=== PATIENT | female | born 1990 | race Caucasian/White ===

== ENCOUNTER 2021-03-22 08:43 | Observation (INO) ==
[2021-03-22] MEDS ORDERED: ONDANSETRON 4 MG/2 ML VIAL IV PRN ×3 (09:09→13:50)
--- NOTE | 2021-03-22 09:19 | Emergency Department Note ---
Abdominal Pain HPI General Chief Complaint: Flank Pain Stated Complaint: left flank pain Time Seen by Provider: 03/22/21 08:59 Source: patient, EMS, RN notes reviewed, old records reviewed and other (Patient sent from [facility] emergency department with 8 mm kidney stone and evaluation by urology emergency department at hospital.) Mode of arrival: EMS Limitations: no limitations History of Present Illness HPI Narrative: Narrative: 31-year-old female complaining of severe left flank pain starting day prior to arrival seen at [place] emergency department with 8 mm stone at the left UVJ. Was accepted in transfer to this emergency department Dr. Alves of urology. MD Complaint: abdominal pain and flank pain Onset (ago): day(s) (1) Consistency: constant Location: L flank Severity: severe Quality: cramping Radiation: LLQ Migration to: no migration Improves with: medication Worsens with: movement Context: history of similar episodes Associated symptoms: Reports nausea, vomiting, chills, dysuria and hematuria; Denies diarrhea, fever, constipation, hematemesis, hematochezia, melena, anorexia and syncope Treatments prior to arrival: prescription analgesics Related Data Home Medications Medication Instructions Recorded Confirmed cholecalciferol (vitamin D3) 25 mcg PO QDAY 03/22/21 03/22/21 cyanocobalamin (vitamin B-12) 500 mcg PO QDAY 03/22/21 03/22/21 cyproheptadine 4 mg PO Q8H 03/22/21 03/22/21 hydromorphone [Dilaudid] 8 mg PO Q4H PRN 03/22/21 03/22/21 isosorbide mononitrate 30 mg PO QDAY 03/22/21 03/22/21 ivabradine 7.5 mg PO BID 03/22/21 03/22/21 ondansetron HCl [Zofran] 8 mg PO Q8H 03/22/21 03/22/21 potassium chloride 20 meq PO BID 03/22/21 03/22/21 ranolazine 500 mg PO BID 03/22/21 03/22/21 tizanidine 8 mg PO Q8H 03/22/21 03/22/21 torsemide 20 mg PO Q48H 03/22/21 03/22/21 verapamil 80 mg PO TID 03/22/21 03/22/21 zolpidem [Ambien] 5 mg PO QHS PRN 03/22/21 03/22/21 Allergies Allergy/AdvReac Type Severity Reaction Status Date / Time latex Allergy Intermediate Rash Verified 03/22/21 08:50 levofloxacin [From Levaquin] Allergy Intermediate Joint Pain Verified 03/22/21 08:50 moxifloxacin [From Avelox] Allergy Intermediate Joint Pain Verified 03/22/21 08:50 promethazine [From Phenergan] Allergy Intermediate Seizure Verified 03/22/21 08:50 azithromycin Allergy Unknown Hives Verified 03/22/21 08:50 Sulfa (Sulfonamide Allergy Unknown Hives Verified 03/22/21 08:50 Antibiotics) naproxen AdvReac Intermediate Vomiting Verified 03/22/21 08:50 Review of Systems ROS ROS Narrative: Narrative: All systems ED: reviewed and negative except as stated. PFSH Narrative Patient History Narrative: Narrative: Medical/Surgical/Family History All Active Problems (Updated 03/22/21 @ 11:46 by Chet Alves MD) Kidney stone on left side (Acute) Congestive heart failure (CHF) (Acute) Social History Smoking Status: Never smoker Exam Narrative Narrative: Narrative: General Limitations: no limitations General appearance: Present alert, in distress and obese Head Head: Present atraumatic and normocephalic Eye Eye: Present normal appearance, PERRL and EOMI ENT ENT: Present normal exam and mucous membranes moist Neck Neck: Present normal inspection and full ROM Chest Chest: Present normal inspection; Absent tenderness Respiratory Respiratory: Present rales/crackles; Absent respiratory distress Cardiovascular Cardiovascular: Present regular rate and normal rhythm; Absent systolic murmur Adbominal Abdominal: Present soft, tenderness (Left lower quadrant) and normal bowel sounds; Absent distention, guarding, rebound, trauma, Mark's sign, tenderness at McBurney's Point, ascites, mass, bruit, pulsatile mass and hernia Extremities Extremities: Present normal inspection, full ROM and normal capillary refill; Absent tenderness, pedal edema and pretibial edema Back Back: Present normal inspection and CVA tenderness (L); Absent CVA tenderness (R) Neurological Neurological: Present alert and oriented X3 Psychiatric Psychiatric: Present normal affect and normal mood Skin Skin: Present warm (WNL); Absent rash Course Vital Signs Vital signs: Vital Signs Temperature 98.0 F 03/22/21 08:44 Pulse Rate 83 09/13/21 08:44 Respiratory Rate 20 03/22/21 08:44 Blood Pressure 124/80 03/22/21 08:44 Pulse Oximetry (%) 100 03/22/21 08:44 Temperature 98.0 F 03/22/21 08:44 Pulse Rate 77 03/22/21 12:01 Respiratory Rate 20 03/22/21 08:44 Blood Pressure 110/79 03/22/21 12:01 Pulse Oximetry (%) 100 03/22/21 12:01 MDM MDM Narrative Medical decision making narrative: Narrative: 31-year-old female with known 8 mm kidney J transferred to this emergency department for evaluation by . Dr. Alves requests patient be admitted to hospitalist. Differential Diagnosis Differential Diagnosis: Kidney stone pyelonephritis Medical Records Medical records reviewed: Yes I reviewed the patient's medical records. EKG Data EKG #1: EKG attestation: Yes I reviewed and interpreted this EKG. and Yes There are no EKG findings of acute coronary syndrome EKG shows normal: sinus rhythm Rate: normal (72) Rhythm: NSR [place]/QRS: normal Heart block present: None ST segment elevation in: None ST segment depression in: None Q waves: None T wave inversions noted in: None Hyperacute T waves: None QTc: normal QRS morphology: Present normal Interpretation: normal EKG Pulse Oximetry Data Pulse Ox %: 100 Interpretation: 100% on 3 L nasal cannula. Discharge Plan Patient/Caregiver Discharge Instructions Pt seen by LICENSED APPRAISER/PA only: No Clinical Impression: Kidney stone on left side Congestive heart failure (CHF) Qualifiers: Heart failure type: unspecified Heart failure chronicity: chronic Qualified Code(s): I50.9 - Heart failure, unspecified Patient Disposition: Xfer As Outpt/Obs ([facility]) Condition: Fair Follow up with: Not On Staff,Physician [Referring] - Prescriptions: No Action torsemide 20 mg Tablet 20 mg PO Q48H RF: 0 tizanidine 4 mg Tablet 8 mg PO Q8H RF: 0 ondansetron HCl [Zofran] 8 mg Tablet 8 mg PO Q8H RF: 0 hydromorphone [Dilaudid] 8 mg Tablet 8 mg PO Q4H PRN (Reason: Pain) RF: 0 isosorbide mononitrate 30 mg Tablet Extended Release 24 Hr 30 mg PO QDAY RF: 0 cyproheptadine 4 mg Tablet 4 mg PO Q8H RF: 0 potassium chloride 20 mEq Packet 20 meq PO BID RF: 0 cyanocobalamin (vitamin B-12) 500 mcg Tablet 500 mcg PO QDAY RF: 0 zolpidem [Ambien] 5 mg Tablet 5 mg PO QHS PRN (Reason: Insomnia) RF: 0 verapamil 80 mg Tablet 80 mg PO TID RF: 0 ranolazine 500 mg Tablet Extended Release 12 Hr 500 mg PO BID RF: 0 cholecalciferol (vitamin D3) 25 mcg (1,000 unit) Tablet 25 mcg PO QDAY RF: 0 ivabradine 7.5 mg Tablet 7.5 mg PO BID RF: 0
[2021-03-22] MEDS: HYDROmorphone 1 MG/ML SYRINGE IV PRN ×5 (11:24→22:04)
--- NOTE | 2021-03-22 13:23 | Internal Med History&Physical ---
HPI History of Present Illness Patient information: Note initiated : 03/22/21 at 1:13 pm Service Date, if different from initiated Date: [] Patient: Mary Lobato 31 y/o F admitted on for Lt flank pain. Chief Complaint: [] History of present illness: Ms. Lobato is a 31 year old female with a complex medical history that includes a history of coronary vasospasm, congenital heart disease of uncertain type complicated by congestive heart failure and pulmonary hypertension, asthma, chronic hypoxia with about 2 L/min baseline requirement, renal stones renal cysts, possible ankylosing spondylitis, obesity s/p gastric sleeve in 2019. The patient was transferred to the [facility] ED for further management of a left UVJ ureteral stone. The patient developed left flank pain on 03/18/2021 that progressed to let groin pain and gross hematuria on 03/19. This was associated with nausea, vomiting, chills, sweats and chest pain similar to the patient's prior episodes of coronary vasospasms. The patient was not able to keep food or medications down. She sought medical care at an outside facility where a CT chest/abdomen/pelvis revealed a 8 mm ureteral stone in the left ureter. Urology was not available at the outside facility at that time so the patient was transferred to [facility]. Dr. Alves requested hospital medicine admit the patient. The patient arrived to [facility] in stable condition and feels that she is at her cardiopulmonary baseline. Her pain was modestly controlled with Dilaudid IV in the ED. Review of Systems Constitutional: positive for chills, no fevers Eyes: no vision changes or pain Cardiovascular: positive for chest pain, no palpitations Respiratory: no cough or dyspnea Gastrointestinal: positive for nausea and vomiting, or diarrhea Genitourinary: positive for hematuria Musculoskeletal: no arthralgia or myalgia Integumentary: no skin lesion or wound Neurological: no focal weakness or numbness Psychiatric: no anxiety or depression Physical Exam Head: Atraumatic, normal inspection. Eyes: normal appearance, no scleral icterus. Neck: full ROM Respiratory: 2 L/min nasal canula, no respiratory distress. Cardiovascular: normal rate and rhythm, S1, S2. GI/Abdominal: soft, nontender, no guarding. Extremities: full range of motion, nontender. Neurological: CN II-XII intact, intact motor, intact sensation. Psychiatric: normal mood. Skin: warm, normal color PFSH PFSH All Active Problems (Updated 03/22/21 @ 13:35 by Zuhair Carrera MD) Obesity (Acute) Hypoxia (Acute) Kidney stone on left side (Acute) Congestive heart failure (CHF) (Acute) Medical History (Updated 03/22/21 @ 13:35 by Zuhair Carrera MD) Asthma Congenital heart disease Coronary artery vasospasm Hypoxia Obesity Pulmonary hypertension Surgical History (Updated 03/22/21 @ 13:36 by Zuhair Carrera MD) H/O esophagogastroduodenoscopy History of ERCP History of repair of hiatal hernia Hx of appendectomy Hx of cardiac cath Family History (Updated 03/22/21 @ 13:39 by Zuhair Carrera MD) Father Diabetes mellitus Grandfather Coronary artery disease Renal stones Grandmother Breast cancer Renal stones Congestive heart failure COPD (chronic obstructive pulmonary disease) Social History (Updated 03/22/21 @ 13:40 by Zuhair Carrera MD) marital status: single occupational status: disabled smoking status: Never smoker alcohol intake frequency: does not drink substance use type: does not use MEDS/ALLERGIES Home Medications and Allergies Home Medications Medication Instructions Recorded Confirmed Type cholecalciferol (vitamin D3) 25 mcg PO QDAY 03/22/21 03/22/21 History cyanocobalamin (vitamin B-12) 500 mcg PO QDAY 03/22/21 03/22/21 History cyproheptadine 4 mg PO Q8H 03/22/21 03/22/21 History hydromorphone [Dilaudid] 8 mg PO Q4H PRN 03/22/21 03/22/21 History isosorbide mononitrate 30 mg PO QDAY 03/22/21 03/22/21 History ivabradine 7.5 mg PO BID 03/22/21 03/22/21 History ondansetron HCl [Zofran] 8 mg PO Q8H 03/22/21 03/22/21 History potassium chloride 20 meq PO BID 03/22/21 03/22/21 History ranolazine 500 mg PO BID 03/22/21 03/22/21 History tizanidine 8 mg PO Q8H 03/22/21 03/22/21 History torsemide 20 mg PO Q48H 03/22/21 03/22/21 History verapamil 80 mg PO TID 03/22/21 03/22/21 History zolpidem [Ambien] 5 mg PO QHS PRN 03/22/21 03/22/21 History Allergies Allergy/AdvReac Type Severity Reaction Status Date / Time latex Allergy Intermediate Rash Verified 03/22/21 08:50 levofloxacin [From Levaquin] Allergy Intermediate Joint Pain Verified 03/22/21 08:50 moxifloxacin [From Avelox] Allergy Intermediate Joint Pain Verified 03/22/21 08:50 promethazine [From Phenergan] Allergy Intermediate Seizure Verified 03/22/21 08:50 azithromycin Allergy Unknown Hives Verified 03/22/21 08:50 Sulfa (Sulfonamide Allergy Unknown Hives Verified 03/22/21 08:50 Antibiotics) naproxen AdvReac Intermediate Vomiting Verified 03/22/21 08:50 EXAM Constitutional Vitals: Temp Pulse Resp BP Pulse Ox 98.0 F 83 20 117/82 100 03/22/21 08:44 03/22/21 12:44 03/22/21 08:44 03/22/21 12:44 03/22/21 12:44 A/P Narrative A/P Narrative: Assessment: 31 year old female with a complex medical history that includes a history of coronary vasospasm, congenital heart disease of uncertain type complicated by congestive heart failure and pulmonary hypertension, asthma, chronic hypoxia with about 2 L/min baseline requirement, renal stones renal cysts, possible ankylosing spondylitis, chronic pain on opioids (oral dilaudid and fentanyl patch), obesity s/p gastric sleeve in 2019. The patient has had multiple surgeries and procedures in her life-time including multiple cardiac catheterizations, an ERCP, appendectomy, gastric sleeve and hiatal hernia repair, and a recent EGD earlier this year. She denies prior complications from anesthesia. The patient was at her baseline in the ED, denies chest pain. EKG did not show any acute ischemic changes. Troponin and BNP from the OSH were normal. #Left 8 mm ureteral stone #Chronic hypoxia of 2 L/min #Pulmonary hypertension #Hx of coronary vasospasms (stable) #Hx of congestive heart failure (stable) #Hx of asthma (stable) #Chronic pain on opioids #Congenital heart disease #Obesity s/p gastric sleeve 2019 #Hx of NSAID induced acute kidney injury Plan -Ok to proceed with urologic procedure from an internal medicine perspective. -Admit to med/surg observation -Urology consulted for ureteral procedure -Ceftriaxone IV for urologic procedure -Consider Flomax for ureteral stone-per urology -Continue essential home medications starting today. -media monitor -NPO except meds -Code status: Full -Disposition: home if stable after the procedure Time Spent With Patient Time: Total time spent is greater than 50% in coordination of care (as docume nted) at patient's floor/unit and/or counseling patient:
[2021-03-22] MEDS ORDERED: NALOXONE HCL 0.4 MG/ML VIAL IV PRN ×2 (13:50→16:34)
[2021-03-22] MEDS ORDERED: ONDANSETRON 4 MG ODT TABLET PO PRN (14:04)
--- NOTE | 2021-03-22 14:43 | EKG ---
[facility] Test Date: 2021-03-22 Pat Name: Mary Lobato Department: ED Room: Gender: Female Telephoner: cyril : 1990 Requested By: Ion Linares Order Number: [id number] Reading MD: Fortino Hutchison Measurements Intervals [place] Rate: 72 P: 56 OR: 152 QRS: 52 QRSD: 101 T: 47 QT: 414 QTc: 454 Interpretive Statements Sinus rhythm Electronically Signed On 03-22-2021 14:43:28 PDT by Fortino Hutchison /store/M0/[id number]
[2021-03-22 14:49] LABS: Basophils # (Auto) 0.04 K/mcL (0.00-0.30); Basophils % (Auto) 0.7 % (0.0-2.0); Eosinophils # (Auto) 0.17 K/mcL (0.00-0.70); Eosinophils % (Auto) 3.1 % (0.0-7.0); Hematocrit 30.3 % (34.1-44.9); Hemoglobin 9.9 g/dL (11.2-15.7); Lymphocytes # (Auto) 1.71 K/mcL (1.50-4.80); Lymphocytes % (Auto) 30.7 % (15.5-49.0); Mean Cell Volume 86.8 fL (80.0-100.0); Mean Corpuscular HGB Conc 32.7 g/dL (31.0-36.0); Mean Platelet Volume 9.9 fL (7.4-10.4); Monocytes # (Auto) 0.38 K/mcL (0.10-0.90); Monocytes % (Auto) 6.8 % (1.0-12.0); Neutrophils % (Auto) 58.7 % (38.0-78.0); Platelet Count 271 K/mcL (140-440); RBC 3.49 M/mcL (3.59-5.38); Red Cell Distribution Width 13.5 % (11.5-14.5); WBC 5.6 K/mcL (4.5-11.0)
[2021-03-22 15:12] LABS: ALT/SGPT 6 U/L (<40); AST/SGOT 13 U/L (<32); Albumin 3.7 gm/dL (3.2-5.2); Albumin/Globulin Ratio 1.4 (1.0-2.3); Alkaline Phosphatase 76 U/L (39-117); Bilirubin,Total 0.3 mg/dL (0.1-1.0); Blood Urea Nitrogen 10 mg/dL (6-20); Calcium 8.5 mg/dL (8.6-10.4); Carbon Dioxide 24 mmol/L (22-30); Chloride 101 mmol/L (96-108); Globulin 2.6 gm/dL (2.2-3.7); Glomerular Filtration Rate 115; Glucose 81 mg/dL (70-105)
[2021-03-22] MEDS ORDERED: IPRATROPIUM/ALBUTEROL 3 ML AMPUL.NEB NEB PRN ×2 (15:29→16:34)
--- NOTE | 2021-03-22 15:47 | General Surgery Consult Note ---
HPI Data of Consult Consult date: 03/22/21 Primary Care Provider: Mary Owusu MD Consult Narrative Chief complaint: Left flank and lower quadrant pain Reason for consult: Need for surgical intervention History of present illness: This 31-year-old female has a history of stones. She developed severe left flank pain of fairly rapid onset on March 18. On March 19 the pain began to radiate down into the left groin also and was associated with gross hematuria and nausea and vomiting. On March 21 she went to the emergency room in [place]. A CT showed an 8 mm left ureterovesical junction stone with obstruction. That coupled with her history of congenital congestive heart failure prompted a transfer to this hospital. She has been seen by medicine who felt that she is at her normal baseline at this point and was cleared for surgery and anesthesia. We will proceed with a left ureteroscopic laser lithotripsy. cc:: CC: Zuhair Carrera MD PFSH PFSH All Active Problems (Updated 03/22/21 @ 13:35 by Zuhair Carrera MD) Obesity (Acute) Hypoxia (Acute) Kidney stone on left side (Acute) Congestive heart failure (CHF) (Acute) Medical History (Updated 03/22/21 @ 13:35 by Zuhair Carrera MD) Asthma Congenital heart disease Coronary artery vasospasm Hypoxia Obesity Pulmonary hypertension Surgical History (Updated 03/22/21 @ 13:36 by Zuhair Carrera MD) H/O esophagogastroduodenoscopy History of ERCP History of repair of hiatal hernia Hx of appendectomy Hx of cardiac cath Family History (Updated 03/22/21 @ 13:39 by Zuhair Carrera MD) Father Diabetes mellitus Grandfather Coronary artery disease Renal stones Grandmother Breast cancer Renal stones Congestive heart failure COPD (chronic obstructive pulmonary disease) Social History (Updated 03/22/21 @ 13:40 by Zuhair Carrera MD) marital status: single occupational status: disabled smoking status: Never smoker alcohol intake frequency: does not drink substance use type: does not use MEDS/ALLERGIES Home Medications and Allergies Home Medications Medication Instructions Recorded Confirmed Type Xanax 0.5 mg PO TID 03/22/21 03/22/21 History cholecalciferol (vitamin D3) 25 mcg PO QDAY 03/22/21 03/22/21 History cyanocobalamin (vitamin B-12) 500 mcg PO QDAY 03/22/21 03/22/21 History cyproheptadine 4 mg PO Q8H 03/22/21 03/22/21 History fentanyl 50 mcg TRANSDERMAL Q3D 03/22/21 03/22/21 History gabapentin 50 mg PO TID 03/22/21 03/22/21 History hydromorphone [Dilaudid] 8 mg PO Q4H PRN 03/22/21 03/22/21 History isosorbide mononitrate 30 mg PO QDAY 03/22/21 03/22/21 History ivabradine 7.5 mg PO BID 03/22/21 03/22/21 History ondansetron HCl [Zofran] 8 mg PO Q8H 03/22/21 03/22/21 History potassium chloride 20 meq PO BID 03/22/21 03/22/21 History ranolazine 500 mg PO BID 03/22/21 03/22/21 History tizanidine 8 mg PO Q8H 03/22/21 03/22/21 History torsemide 20 mg PO Q48H 03/22/21 03/22/21 History verapamil 80 mg PO TID 03/22/21 03/22/21 History zolpidem [Ambien] 5 mg PO QHS PRN 03/22/21 03/22/21 History Allergies Allergy/AdvReac Type Severity Reaction Status Date / Time azithromycin Allergy Mild Hives Verified 03/22/21 14:00 latex Allergy Mild Rash Verified 03/22/21 14:00 Sulfa (Sulfonamide Allergy Mild Hives Verified 03/22/21 14:00 Antibiotics) levofloxacin [From Levaquin] AdvReac Intermediate Joint Pain Verified 03/22/21 14:00 moxifloxacin [From Avelox] AdvReac Intermediate Joint Pain Verified 03/22/21 14:00 promethazine [From Phenergan] AdvReac Intermediate Seizure Verified 03/22/21 14:00 naproxen AdvReac Mild Vomiting Verified 03/22/21 14:00 Physical Examination Vital Signs Vital signs: Temp Pulse Resp BP Pulse Ox 98.0 F 76 20 116/75 100 03/22/21 13:52 03/22/21 13:52 03/22/21 13:52 03/22/21 13:52 03/22/21 13:52 General physical appearance General physical exam: moderate distress ENT ENT exam: normal pinna and normal nares Head Head exam IM: Present normal inspection Cardiovascular Cardiovascular exam IM: Present normal rate and rhythm Respiratory Respiratory exam: normal respiratory effort Abdomen Abdomen: Present soft Integumentary Integumentary: Present no rash Results Labs Result diagrams: 03/22/21 14:20 03/22/21 14:20 Labs: Abnormal lab results 03/22/21 03/22/21 Range/Units 14:20 14:20 RBC 3.49 L (3.59-5.38) M/mcL Hgb 9.9 L (11.2-15.7) g/dL Hct 30.3 L (34.1-44.9) % Calcium 8.5 L (8.6-10.4) mg/dL Diabetes panel 03/22/21 Range/Units 14:20 Sodium 135 (133-145) mmol/L Potassium 4.1 (3.3-5.1) mmol/L Chloride 101 (96-108) mmol/L Carbon Dioxide 24 (22-30) mmol/L BUN 10 (6-20) mg/dL Creatinine 0.7 (0.6-1.1) mg/dL Glucose 81 (70-105) mg/dL Calcium 8.5 L (8.6-10.4) mg/dL AST 13 (<32) U/L ALT 6 (<40) U/L Alkaline Phosphatase 76 (39-117) U/L Total Protein 6.3 (5.9-8.4) gm/dL Albumin 3.7 (3.2-5.2) gm/dL Calcium panel 03/22/21 Range/Units 14:20 Calcium 8.5 L (8.6-10.4) mg/dL Albumin 3.7 (3.2-5.2) gm/dL Pituitary panel 03/22/21 Range/Units 14:20 Sodium 135 (133-145) mmol/L Potassium 4.1 (3.3-5.1) mmol/L Chloride 101 (96-108) mmol/L Carbon Dioxide 24 (22-30) mmol/L BUN 10 (6-20) mg/dL Creatinine 0.7 (0.6-1.1) mg/dL Glucose 81 (70-105) mg/dL Calcium 8.5 L (8.6-10.4) mg/dL Adrenal panel 03/22/21 Range/Units 14:20 Sodium 135 (133-145) mmol/L Potassium 4.1 (3.3-5.1) mmol/L Chloride 101 (96-108) mmol/L Carbon Dioxide 24 (22-30) mmol/L BUN 10 (6-20) mg/dL Creatinine 0.7 (0.6-1.1) mg/dL Glucose 81 (70-105) mg/dL Calcium 8.5 L (8.6-10.4) mg/dL Total Bilirubin 0.3 (0.1-1.0) mg/dL AST 13 (<32) U/L ALT 6 (<40) U/L Alkaline Phosphatase 76 (39-117) U/L Total Protein 6.3 (5.9-8.4) gm/dL Albumin 3.7 (3.2-5.2) gm/dL All other labs normal. A/P Assessment and plan (1) Kidney stone on left side: Status: Acute Comment: Left flank pain with large distal ureteral stone Narrative A/P Narrative: Assessment--left ureterovesical junction stone Plan--proceed with left ureteroscopic laser lithotripsy under anesthesia in the operating room Time Spent With Patient Time: Total time spent is greater than 50% in coordination of care (as documented) at patient's floor/unit and/or counseling patient: Total time spent with greater than 50% in coordination of care (as documented) at patient's floor/unit and/or counseling patient:: 15 - 24 minutes
[2021-03-22] MEDS ORDERED: LIDOCAINE HCL/PF 100 MG/5 ML SYRINGE IV ONE (16:15)
[2021-03-22] MEDS ORDERED: MAGNESIUM SULFATE 2 GM/50 ML BAG IV ONE (16:15)
[2021-03-22] MEDS ORDERED: GLYCOPYRROLATE 0.2 MG/ML VIAL IV ONE (16:15)
[2021-03-22] MEDS ORDERED: KETAMINE 50 MG/ML Syringe (ANEST) IV ONE (16:15)
[2021-03-22] MEDS ORDERED: ONDANSETRON 4 MG/2 ML VIAL ONE (16:15)
[2021-03-22] MEDS ORDERED: HYDROmorphone 1 MG/ML SYRINGE ONE (16:15)
[2021-03-22] MEDS ORDERED: fentaNYL 100 MCG/2 ML VIAL IV ONE (16:15)
[2021-03-22] MEDS ORDERED: DEXAMETHASONE 10 MG/ML VIAL ONE (16:15)
[2021-03-22] MEDS ORDERED: PROPOFOL 200 MG/20 ML VIAL IV ONE (16:15)
[2021-03-22] MEDS ORDERED: MIDAZOLAM 5 MG/5 ML VIAL ONE (16:15)
[2021-03-22] MEDS: cefTRIAXone 1 GM VIAL IV SCH (16:15)
[2021-03-22] MEDS ORDERED: fentaNYL 100 MCG/2 ML VIAL IV PRN (16:34)
[2021-03-22] MEDS ORDERED: ACETAMINOPHEN 1,000 MG/100 ML BAG IV ONE (16:34)
[2021-03-22] MEDS ORDERED: METHOCARBAMOL 1,000 MG/10 ML VIAL IV PRN (16:34)
[2021-03-22] MEDS ORDERED: METOPROLOL TARTRATE 5 MG/5 ML VIAL IV PRN (16:34)
[2021-03-22] MEDS ORDERED: LACTATED RINGERS 250 ML IV PRN (16:34)
[2021-03-22] MEDS ORDERED: HYDROmorphone 0.5 MG/0.5 ML SYRINGE IV PRN (16:34)
[2021-03-22] MEDS ORDERED: FLUMAZENIL 0.1 MG/ML ML IV PRN (16:34)
[2021-03-22] MEDS ORDERED: LABETALOL 5 MG/ML ML IV PRN (16:34)
[2021-03-22] MEDS ORDERED: MEPERIDINE 25 MG/ML VIAL IV PRN (16:34)
[2021-03-22] MEDS ORDERED: BENZOCAINE/MENTHOL 1 LOZENGE PO PRN (16:34)
[2021-03-22] MEDS ORDERED: IOVERSOL 20 ML VIAL IV ONE (16:41)
[2021-03-22] MEDS ORDERED: LACTATED RINGERS 1,000 ML IV SCH (16:45)
--- NOTE | 2021-03-22 17:11 | Brief Operative Note ---
Brief Operative Note Date of procedure: 03/22/21 Pre-op diagnosis: Left UVJ stone Post-op diagnosis: same Procedure: Left ureteroscopic laser lithotripsy with stent placement Grafts/Implants: Yes (6 Bangladeshi by 26 cm stent) Anesthesia: GETA Findings: Same Complications: none Surgeon: Chet Alves Estimated blood loss (cc): 0 Tourniquet Time (Minutes): 0 Specimens Removed/Pathology: other (Stone fragments from left ureter) Condition: stable Disposition: PACU
--- NOTE | 2021-03-22 17:17 | Operative Note ---
Operative Note Operative Note: Preop diagnosis--left UVJ stone Surgeon--Chet Alves Operation performed--left ureteroscopic laser lithotripsy with stent placement Postop diagnosis--same Anesthesia--General with LMA Complications--none Specimen--stone fragments Blood loss--none Drain--6 Albanian by 26 cm double-J stent with string Indication this patient has a history of kidney stones and developed sudden onset of left flank pain and left lower quadrant pain 4 days ago. It got progressively worse associated with nausea and vomiting and came to the emergency room in [place]. There she was found to have an 8 mm distal stone with obstruction and was transferred here for definitive treatment. Description--following satisfactory placement on the operating table in a supine position, a timeout was called at which time we confirmed the patient, procedure, position and presence of antibiotic. Following satisfactory induction of general anesthesia patient was prepped and draped in a lithotomy position. A 21 Albanian cystoscope was advanced into the bladder under direct vision. The urethra was normal. Bladder neck was normal. Trigone and orifice ease were normal. And a 5 Albanian open tip ureteral catheter was inserted into the left ureteral orifice and a retrograde study was seen showing a stone approximately 1 cm from the orifice. A safety tip guidewire was passed through the open tip catheter past the stone and coiled in the kidney. The open tip catheter was removed. Following that the cystoscope was replaced with a short semirigid ureteroscope. It was advanced over a second wire into the left ureter. Up to and above the stone. Once that was done the second wire was removed leaving the initial [address] A 365 m laser fiber was used with the holmium laser set on 10 and 1. The laser was used to break the stone up into multiple smaller fragments. It was a very soft stone and broke up quite easily. The smaller pieces were flushed out. Larger stones were grasped using a stone basket and sent as specimen. The ureter at the end was stone free after several passes with the scope. At that point the ureteroscope and basket were replaced with the original cystoscope sheath. Once reassembled the 6 Albanian by 26 cm double-J stent with a knot in the string which was left in place was advanced over the guidewire. It was advanced up to the kidney and with slow withdrawal of the wire there was good coil in the kidney. The wire was completely removed and there was good coil in the bladder. The bladder was emptied and the scope removed. The suture on the stent was cut short but outside of the urethral meatus. At that point she was transferred to recovery room in satisfactory condition
[2021-03-22] MEDS: 0.9 % SODIUM CHLORIDE 10 ML SYRINGE IV SCH ×3 (18:36→22:05)
[2021-03-22] MEDS: VERAPAMIL HCL 80 MG TABLET PO SCH ×2 (18:36→21:47)
[2021-03-22] MEDS: ISOSORBIDE MONONITRATE 30 MG TAB.XL.24H PO SCH (18:36)
[2021-03-22] MEDS: tiZANidine 4 MG TABLET PO SCH ×2 (18:36→21:47)
[2021-03-22] MEDS: HYDROmorphone 2 MG TABLET PO PRN (19:36)
[2021-03-22] MEDS: DOCUSATE SODIUM 100 MG CAPSULE PO SCH (21:46)
[2021-03-22] MEDS: POTASSIUM CHLORIDE 20 MEQ PACKET PO SCH (21:46)
[2021-03-22] MEDS: ATORVASTATIN 40 MG TABLET PO SCH (21:46)
[2021-03-22] MEDS: SENNOSIDES 1 TABLET PO SCH (21:47)
[2021-03-22] MEDS: RANOLAZINE 500 MG PO SCH (21:49)
[2021-03-22] MEDS: ZOLPIDEM 5 MG TABLET PO PRN (22:04)
[2021-03-22] MEDS: ALPRAZolam 0.5 MG TABLET PO PRN (22:04)
[2021-03-23] MEDS: HYDROmorphone 2 MG TABLET PO PRN ×3 (03:38→22:04)
[2021-03-23] MEDS: 0.9 % SODIUM CHLORIDE 10 ML SYRINGE IV SCH ×3 (06:07→20:55)
[2021-03-23] MEDS: tiZANidine 4 MG TABLET PO SCH ×3 (06:07→20:53)
[2021-03-23] MEDS ORDERED: TORSEMIDE 10 MG TABLET PO SCH (09:00)
[2021-03-23] MEDS: ACETAMINOPHEN 325 MG TABLET PO PRN (09:28)
[2021-03-23] MEDS: cefTRIAXone 1 GM VIAL IV SCH (09:29)
[2021-03-23] MEDS: ISOSORBIDE MONONITRATE 30 MG TAB.XL.24H PO SCH (10:38)
[2021-03-23] MEDS: ALPRAZolam 0.5 MG TABLET PO PRN ×3 (10:38→22:04)
[2021-03-23] MEDS: DOCUSATE SODIUM 100 MG CAPSULE PO SCH ×2 (10:38→20:51)
[2021-03-23] MEDS: VERAPAMIL HCL 80 MG TABLET PO SCH ×3 (10:39→20:51)
[2021-03-23] MEDS: POTASSIUM CHLORIDE 20 MEQ PACKET PO SCH ×2 (10:39→20:51)
[2021-03-23] MEDS: RANOLAZINE 500 MG PO SCH ×2 (11:01→20:53)
--- NOTE | 2021-03-23 11:05 | General Surgery Progress Note ---
SUBJECTIVE Subjective Patient information: Note initiated : 03/23/21 at 11:02 am Service Date, if different from initiated Date: [] Patient: Mary Lobato 31 y/o F admitted on 03/22/21 for Lt flank pain. Chief Complaint: [] Left ureteral calculus This patient underwent left ureteroscopic laser lithotripsy yesterday with a stent left in place. She is bothered this morning by her chronic pain and inability to get what she considers her standard regimen of pain medicine. She has not yet started on regular diet but should be able to tolerate it without difficulty. At this point if clinically stable she could be discharged to maintain her own care which she has been doing in the past. Constitutional Vitals: Vital Signs Temp Pulse Resp BP Pulse Ox 98.4 F 63 20 96/57 99 03/23/21 07:41 03/23/21 07:41 03/23/21 07:41 03/23/21 07:41 03/23/21 07:41 Period Temp Pulse Resp BP Sys/Tariq Pulse Ox Last 24 Hr 96.8 F-98.4 F 58-99 03-31 90-176/55-104 92-100 Intake and Output 03/22/21 03/23/21 03/23/21 21:59 05:59 13:59 Intake Total 1100 600 Output Total 1410 700 Balance -310 -100 Weight 247 lb 9.6 oz Intake & Output: Intake & Output 03/22/21 03/23/21 03/23/21 21:59 05:59 13:59 Intake Total 1100 600 Output Total 1410 700 Balance -310 -100 Weight 247 lb 9.6 oz Intake: IV 100 Oral 600 IV - Manual Only 1000 Output: Void Amount 1400 700 Estimated Blood Loss 10 Other: Urine Appearance Clear Urine Color Susan Moore Red Brown Urine Odor Strong A/P Assessment and plan (1) Kidney stone on left side: Status: Acute Comment: Left flank pain with large distal ureteral stone. Stone removed yesterday and at this time is stented and stone free. Cleared for discharge if other clinical issues stable. Time Spent With Patient Time: Total time spent is greater than 50% in coordination of care (as documented) at patient's floor/unit and/or counseling patient:
[2021-03-23] MEDS: HYDROmorphone 1 MG/ML SYRINGE IV PRN ×4 (11:09→20:54)
[2021-03-23] MEDS ORDERED: fentaNYL 50 MCG PATCH TOPICAL SCH (17:00)
--- NOTE | 2021-03-23 17:11 | Surgical Pathology Report ---
Histology Microscopic Diagnosis Specimen A- MINERAL MATERIAL, LEFT URETERAL, EXTRACTION: --- CALCULI (GROSS DIAGNOSIS), SUBMITTED FOR CHEMICAL ANALYSIS. (ACP:sln) Gross Description Received fresh labeled left ureteral stone, are three brown saldana stone fragments ranging in size from 0.1 to 0.3 cm and in aggregate measuring 0.4 x 0.2 x 0.2 cm. Gross only, no sections taken. The specimen will be submitted for chemical analysis. (KGW:sln) Electronically Signed Nick Bates MD, FCAP Electronically Signed 03/23/2021 17:10
--- NOTE | 2021-03-23 19:10 | Internal Med Progress Note ---
SUBJECTIVE Subjective Patient information: Note initiated : 03/23/21 at 7:09 pm Service Date, if different from initiated Date: [] Patient: Mary Lobato 31 y/o F admitted on 03/22/21 for Lt flank pain. Chief Complaint: [] Interval history: Ms. Lobato is a 31 year old female with a complex medical history that includes a history of coronary vasospasm, congenital heart disease of uncertain type complicated by congestive heart failure and pulmonary hypertension, asthma, chronic hypoxia with about 2 L/min baseline requirement, renal stones renal cysts, possible ankylosing spondylitis, obesity s/p gastric sleeve in 2019. The patient was transferred to the [facility] ED for further management of a left UVJ ureteral stone. The patient developed left flank pain on 03/18/2021 that progressed to let groin pain and gross hematuria on 03/19. This was associated with nausea, vomiting, chills, sweats and chest pain similar to the patient's prior episodes of coronary vasospasms. The patient was not able to keep food or medications down. She sought medical care at an outside facility where a CT chest/abdomen/pelvis revealed a 8 mm ureteral stone in the left ureter. Urology was not available at the outside facility at that time so the patient was transferred to [facility]. Dr. Alves requested hospital medicine admit the patient. The patient arrived to [facility] in stable condition and feels that she is at her cardiopulmonary baseline. Her pain was modestly controlled with Dilaudid IV in the ED. 03/23: ureter stent placed, discontinued Ceftriaxone, working on pain control. Physical Exam Head: Atraumatic, normal inspection. Eyes: normal appearance, no scleral icterus. Neck: full ROM Respiratory: 2 L/min nasal canula, no respiratory distress. Cardiovascular: normal rate and rhythm, S1, S2. GI/Abdominal: soft, nontender, no guarding. Extremities: full range of motion, nontender. Neurological: CN II-XII intact, intact motor, intact sensation. Psychiatric: normal mood. Skin: warm, normal color Constitutional Vitals: Vital Signs Temp Pulse Resp BP Pulse Ox 96.9 F L 74 18 90/60 99 03/23/21 16:00 03/23/21 16:00 03/23/21 12:00 03/23/21 17:15 03/23/21 16:00 Period Temp Pulse Resp BP Sys/Tariq Pulse Ox Last 24 Hr 96.7 F-98.4 F 58-102 12-20 88-126/55-82 96-99 Intake and Output 03/23/21 03/23/21 03/23/21 05:59 13:59 21:59 Intake Total 600 1000 Output Total 700 200 550 Balance -100 -200 450 Weight 112.309 kg Intake & Output: Intake & Output 03/23/21 03/23/21 03/23/21 05:59 13:59 21:59 Intake Total 600 1000 Output Total 700 200 550 Balance -100 -200 450 Weight 112.309 kg Intake: Oral 600 1000 Output: Void Amount 700 200 550 Other: Meal Lunch Percent of Meal Consumed 75% Feeding Ability Independent Urine Appearance Hematuria Clear Urine Color Red Brown Brown Brown Red Brown Blood Tinged Urine Odor Normal OBJ DATA Labs CBC & Chem 7: 03/22/21 14:20 03/22/21 14:20 Labs: Abnormal Lab Results 03/22/21 03/22/21 14:20 14:20 RBC 3.49 L Hgb 9.9 L Hct 30.3 L Calcium 8.5 L Meds: Medications Acetaminophen (Acetaminophen 325 Mg Tablet) 650 mg PO Q4HP PRN; Protocol PRN Reason: Per Pain Protocol Last Admin: 03/23/21 09:28 Dose: 650 mg Documented by: Alprazolam (Alprazolam 0.5 Mg Tablet) 0.5 mg PO TIDP PRN PRN Reason: Anxiety Last Admin: 03/23/21 14:25 Dose: 0.5 mg Documented by: Atorvastatin Calcium (Atorvastatin 40 Mg Tablet) [address] [facility] Last Admin: 03/22/21 21:46 Dose: 20 mg Documented by: Docusate Sodium (Docusate Sodium 100 Mg Capsule) 100 mg PO BID [facility] Last Admin: 03/23/21 10:38 Dose: 100 mg Documented by: Fentanyl (Fentanyl 50 Mcg Patch) 50 mcg TOPICAL Q72H [facility] Hydromorphone HCl (Hydromorphone 2 Mg Tablet) 8 mg PO Q4HP PRN PRN Reason: Pain Last Admin: 03/23/21 12:10 Dose: 8 mg Documented by: Hydromorphone HCl (Hydromorphone 1 Mg/Ml Syringe) 0.5 mg IV Q1HP PRN; Protocol PRN Reason: Per Pain Protocol Isosorbide Mononitrate (Isosorbide Mononitrate 30 Mg Tab.Xl.24h) 30 mg PO QDAY [facility] Last Admin: 03/23/21 10:38 Dose: 30 mg Documented by: Naloxone HCl (Naloxone Hcl 0.4 Mg/Ml Vial) 0.4 mg IV Q10M PRN PRN Reason: Opiate Reversal Ondansetron HCl (Ondansetron 4 Mg Odt Tablet) 8 mg PO Q8HP PRN PRN Reason: Nausea And Vomiting Ondansetron HCl (Ondansetron 4 Mg/2 Ml Vial) 4 mg IV Q6HP PRN PRN Reason: Nausea And Vomiting Cyproheptadine 4 Mg (Tablet) 1 dose PO TID [facility] Last Admin: 03/23/21 14:46 Dose: Not Given Documented by: Ivabradine 7.5 Mg (Tablet) 1 dose PO BIDP PRN PRN Reason: Tachycardia Ranolazine 500 Mg Tablet Extended Release 12 Hr 1 dose PO BID [facility] Last Admin: 03/23/21 11:01 Dose: Not Given Documented by: Potassium Chloride (Potassium Chloride 20 Meq Packet) 20 meq PO BID [facility] Last Admin: 03/23/21 10:39 Dose: 20 meq Documented by: Senna (Sennosides 1 Tablet) 2 tab PO HS [facility] Last Admin: 03/22/21 21:47 Dose: 2 tab Documented by: Sodium Chloride (0.9 % Sodium Chloride 10 Ml Syringe) 5 ml IV Q8 [facility] Last Admin: 03/23/21 14:35 Dose: 5 ml Documented by: Tizanidine HCl (Tizanidine 4 Mg Tablet) 8 mg PO Q8H [facility] Last Admin: 03/23/21 15:08 Dose: 8 mg Documented by: Torsemide (Torsemide 10 Mg Tablet) 20 mg PO Q48@0900 [facility] Last Admin: 03/23/21 10:38 Dose: 20 mg Documented by: Verapamil HCl (Verapamil Hcl 80 Mg Tablet) 80 mg PO TID [facility] Last Admin: 03/23/21 15:15 Dose: 80 mg Documented by: Zolpidem Tartrate (Zolpidem 5 Mg Tablet) 5 mg PO QHS PRN PRN Reason: Insomnia Last Admin: 03/22/21 22:04 Dose: 5 mg Documented by: A/P Narrative A/P Narrative: Assessment: 31 year old female with a complex medical history that includes a history of coronary vasospasm, congenital heart disease of uncertain type complicated by congestive heart failure and pulmonary hypertension, asthma, chronic hypoxia with about 2 L/min baseline requirement, renal stones renal cysts, possible ankylosing spondylitis, chronic pain on opioids (oral dilaudid and fentanyl patch), obesity s/p gastric sleeve in 2019. The patient has had multiple surgeries and procedures in her life-time including multiple cardiac catheterizations, an ERCP, appendectomy, gastric sleeve and hiatal hernia repair, and a recent EGD earlier this year. She denies prior complications from anesthesia. The patient was at her baseline in the ED, denies chest pain. EKG did not show any acute ischemic changes. Troponin and BNP from the OSH were normal. #Left 8 mm ureteral stone s/p stent #Chronic hypoxia of 2 L/min #Pulmonary hypertension #Hx of coronary vasospasms (stable) #Hx of congestive heart failure (stable) #Hx of asthma (stable) #Chronic pain on opioids #Congenital heart disease #Obesity s/p gastric sleeve 2019 #Hx of NSAID induced acute kidney injury Plan -Ok to proceed with urologic procedure from an internal medicine perspective. -Urology consulted for ureteral procedure -Ceftriaxone IV for urologic procedure -Continue essential home medications. 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 -Code status: Full -Disposition: home when pain well controlled Time Spent With Patient Time: Total time spent is greater than 50% in coordination of care (as docum ented) at patient's floor/unit and/or counseling patient: QUALITY VTE Deep Vein Thrombosis/Pulmonary Embolism Present on Admission: No
[2021-03-23] MEDS: ATORVASTATIN 40 MG TABLET PO SCH (20:51)
[2021-03-23] MEDS: SENNOSIDES 1 TABLET PO SCH (20:52)
[2021-03-23] MEDS: ZOLPIDEM 5 MG TABLET PO PRN (22:04)
[2021-03-24] MEDS: HYDROmorphone 1 MG/ML SYRINGE IV PRN ×3 (00:15→07:34)
[2021-03-24] MEDS: HYDROmorphone 2 MG TABLET PO PRN ×3 (03:25→15:50)
[2021-03-24] MEDS: tiZANidine 4 MG TABLET PO SCH ×2 (07:18→13:35)
[2021-03-24] MEDS: ALPRAZolam 0.5 MG TABLET PO PRN (07:34)
[2021-03-24] MEDS: 0.9 % SODIUM CHLORIDE 10 ML SYRINGE IV SCH ×2 (07:34→15:50)
--- NOTE | 2021-03-24 07:49 | General Surgery Progress Note ---
SUBJECTIVE Subjective Patient information: Note initiated : 03/24/21 at 7:45 am Service Date, if different from initiated Date: [] Patient: Mary Lobato 31 y/o F admitted on 03/22/21 for Lt flank pain. Patient underwent left ureteroscopic laser lithotripsy on March 22 with a stent left in place. She has chronic pain prior to the stone on high-dose analgesics and her chronic pain seems to be sometimes confused with the acute pain from the stone and from the surgery. She does need some backup oral pain medicine in the hospital. The stent needs to stay in about a week. We will plan on getting it out in the clinic early next week as an outpatient. She should be able to go home today. The patient is tolerating regular diet and despite the pain is able to get out of bed and is voiding without difficulty. Chief Complaint: [] Left ureteral stone Constitutional Vitals: Vital Signs Temp Pulse Resp BP Pulse Ox 97.5 F 98 H 22 102/65 95 03/24/21 07:19 03/24/21 07:19 03/24/21 07:19 03/24/21 07:19 03/24/21 07:19 Period Temp Pulse Resp BP Sys/Tariq Pulse Ox Last 24 Hr 96.7 F-98.3 F 74-102 16-22 76-126/41-82 95-100 Intake and Output 03/23/21 03/24/21 03/24/21 21:59 05:59 13:59 Intake Total 1000 720 Output Total 550 250 Balance 450 470 Weight 247 lb 1.6 oz Intake & Output: Intake & Output 03/23/21 03/24/21 03/24/21 21:59 05:59 13:59 Intake Total 1000 720 Output Total 550 250 Balance 450 470 Weight 247 lb 1.6 oz Intake: Oral 1000 720 Output: Void Amount 550 250 Other: Meal Lunch Percent of Meal Consumed 75% Feeding Ability Independent Urine Appearance Clear Urine Color Brown Blood Tinged A/P Assessment and plan (1) Kidney stone on left side: Status: Acute Comment: Plan--okay for discharge. Stent can be removed in the clinic as an outpatient within the next 3 to 4 days. Add oxycodone 5 mg 1-2 every 6 hours as needed for pain relief Time Spent With Patient Time: Total time spent is greater than 50% in coordination of care (as documented) at patient's floor/unit and/or counseling patient:
[2021-03-24] MEDS ORDERED: oxyCODONE HCL 5 MG TABLET PO PRN (08:24)
[2021-03-24] MEDS: RANOLAZINE 500 MG PO SCH (09:12)
[2021-03-24 10:11] LABS: Basophils # (Auto) 0.05 K/mcL (0.00-0.30); Basophils % (Auto) 0.5 % (0.0-2.0); Eosinophils # (Auto) 0.16 K/mcL (0.00-0.70); Eosinophils % (Auto) 1.7 % (0.0-7.0); Hematocrit 30.2 % (34.1-44.9); Hemoglobin 9.1 g/dL (11.2-15.7); Lymphocytes # (Auto) 2.41 K/mcL (1.50-4.80); Lymphocytes % (Auto) 25.5 % (15.5-49.0); Mean Cell Volume 90.7 fL (80.0-100.0); Mean Corpuscular HGB Conc 30.1 g/dL (31.0-36.0); Mean Platelet Volume 9.9 fL (7.4-10.4); Monocytes # (Auto) 0.37 K/mcL (0.10-0.90); Monocytes % (Auto) 3.9 % (1.0-12.0); Neutrophils % (Auto) 68.4 % (38.0-78.0); Platelet Count 302 K/mcL (140-440); RBC 3.33 M/mcL (3.59-5.38); WBC 9.5 K/mcL (4.5-11.0)
[2021-03-24] MEDS: POTASSIUM CHLORIDE 20 MEQ PACKET PO SCH (10:17)
[2021-03-24] MEDS: VERAPAMIL HCL 80 MG TABLET PO SCH ×2 (10:18→15:50)
[2021-03-24] MEDS: DOCUSATE SODIUM 100 MG CAPSULE PO SCH (10:18)
[2021-03-24] MEDS: ISOSORBIDE MONONITRATE 30 MG TAB.XL.24H PO SCH (10:18)
[2021-03-24] MEDS ORDERED: HYDROmorphone 2 MG TABLET PO PRN (10:55)
[2021-03-24] MEDS: ACETAMINOPHEN 325 MG TABLET PO PRN (12:00)
--- NOTE | 2021-03-24 15:07 | Discharge Summary ---
Discharge Provider Provider Patient information: Note initiated : 03/24/21 at 3:06 pm Service Date, if different from initiated Date: [] Patient: Mary Lobato 31 y/o F admitted on 03/22/21 for Lt flank pain. Chief Complaint: [] Date of admission: 03/22/21 13:40 Discharge date: 03/24/21 Primary care physician: Mary Owusu MD Consults: 03/22/21 Consult to Physician [CONS] Stat Comment: Consulting Provider: Zuhair Carrera Reason For Exam: Physician to Consult 03/22/21 13:56 Consult to Physician [CONS] Routine Comment: Consulting Provider: Chet Alves Reason For Exam: Physician to Consult Discharge Meds Discharge Medications Home Medications Xanax 0.5 mg PO TID 03/22/21 [History Confirmed 03/22/21 Last Taken 03/18/21] cholecalciferol (vitamin D3) 25 mcg PO QDAY 03/22/21 [History Confirmed 03/22/21 Last Taken 03/18/21] cyanocobalamin (vitamin B-12) 500 mcg PO QDAY 03/22/21 [History Confirmed 03/22/21 Last Taken 03/18/21] cyproheptadine 4 mg PO Q8H 03/22/21 [History Confirmed 03/22/21 Last Taken 03/18/21] fentanyl 50 mcg TRANSDERMAL Q3D 03/22/21 [History Confirmed 03/22/21 Last Taken 03/21/21] gabapentin 50 mg PO TID 03/22/21 [History Confirmed 03/22/21 Last Taken 03/18/21] hydromorphone [Dilaudid] 8 mg PO Q4H PRN 03/22/21 [History Confirmed 03/22/21 Last Taken 03/21/21] isosorbide mononitrate 30 mg PO QDAY 03/22/21 [History Confirmed 03/22/21 Last Taken 03/18/21] ivabradine 7.5 mg PO BID 03/22/21 [History Confirmed 03/22/21 Last Taken 03/18/21] ondansetron HCl 8 mg PO Q8H 03/22/21 [History Confirmed 03/22/21 Last Taken 03/18/21] potassium chloride 20 meq PO BID 03/22/21 [History Confirmed 03/22/21 Last Taken 03/18/21] ranolazine 500 mg PO BID 03/22/21 [History Confirmed 03/22/21 Last Taken 03/18/21] tizanidine 8 mg PO Q8H 03/22/21 [History Confirmed 03/22/21 Last Taken 03/18/21] torsemide 20 mg PO Q48H 03/22/21 [History Confirmed 03/22/21 Last Taken 03/17/21] verapamil 80 mg PO TID 03/22/21 [History Confirmed 03/22/21 Last Taken 03/18/21] zolpidem [Ambien] 5 mg PO QHS PRN 03/22/21 [History Confirmed 03/22/21 Last Taken 03/18/21] COURSE Hospital Course Hospital course: Ms. Lobato is a 31 year old female with a complex medical history that includes a history of coronary vasospasm, congenital heart disease of uncertain type complicated by congestive heart failure and pulmonary hypertension, asthma, chronic hypoxia with about 2 L/min baseline requirement, renal stones renal cysts, possible ankylosing spondylitis, obesity s/p gastric sleeve in 2018. The patient was transferred to the [facility] ED for further management of a left UVJ ureteral stone. The patient developed left flank pain on 03/18/2021 that progressed to let groin pain and gross hematuria on 03/19. This was associated with nausea, vomiting, chills, sweats and chest pain similar to the patient's prior episodes of coronary vasospasms. The patient was not able to keep food or medications down. She sought medical care at an outside facility where a CT chest/abdomen/pelvis revealed a 8 mm ureteral stone in the left ureter. Urology was not available at the outside facility at that time so the patient was transferred to [facility]. Dr. Alves requested [facility] medicine admit the patient. The patient arrived to [facility] in stable condition and feels that she is at her cardiopulmonary baseline. Her pain was modestly controlled with Dilaudid IV in the ED. 03/23: ureter stent placed, discontinued Ceftriaxone, working on pain control. 03/24: discharged to home with urology follow up. Physical Exam Head: Atraumatic, normal inspection. Eyes: normal appearance, no scleral icterus. Neck: full ROM Respiratory: 2 L/min nasal canula, no respiratory distress. Cardiovascular: normal rate and rhythm, S1, S2. GI/Abdominal: soft, nontender, no guarding. Extremities: full range of motion, nontender. Neurological: CN II-XII intact, intact motor, intact sensation. Psychiatric: normal mood. Skin: warm, normal color Discharge diagnosis: Ureteral stone Time Spent with Patient Time attestation: Total time spent providing and/or coordinating discharge services: EXAM Constitutional Vitals: Temp Pulse Resp BP Pulse Ox 98.1 F 61 16 95/61 93 03/24/21 12:00 03/24/21 12:00 03/24/21 12:00 03/24/21 12:00 03/24/21 12:00 Discharge Data Data Completed and Pending Labs on day of discharge: Labs from last 24 hours 03/24/21 09:40 WBC 9.5 RBC 3.33 L Hgb 9.1 L Hct 30.2 L MCV 90.7 MCH 27.3 MCHC 30.1 L RDW 14.0 Plt Count 302 MPV 9.9 Neut % (Auto) 68.4 Lymph % (Auto) 25.5 [place] % (Auto) 3.9 Eos % (Auto) 1.7 Baso % (Auto) 0.5 Lymph # (Auto) 2.41 [place] # (Auto) 0.37 Eos # (Auto) 0.16 Baso # (Auto) 0.05 Absolute Neutrophils 6.46 Discharge Plan Patient/Caregiver Discharge Instructions Activity: increase activity as tolerated Diet: Regular Diet Instructions: Kidney Stones (DC), Ureteroscopy (DC) Activity Restrictions/Additional Instructions: Resume home diet as tolerated. Drink plenty of liquids. Increase activity as tolerated. Continue all home medications as directed. Return to ER for fever, chills, uncontrolled pain, inability to urinate or have a bowel movement, nausea and/or vomiting, swelling, redness, signs of infection, shortness of breath, chest pain, return of symptoms, or other acute symptom. This discharge packet is provided to you to help keep you informed about your care. We want to ensure you get everything you need when you go home. You will also be receiving a call from us in a few days to follow up with you and see how you are doing since your discharge. This gives us a chance to listen to any concerns you maybe experiencing since you were discharged or any additional needs you may have, as well as providing us feedback on your care experience. We strive to always provide excellent care and thank you for your feedback and for choosing [facility]. Prescriptions: Continued torsemide 20 mg Tablet 20 mg PO Q48H RF: 0 tizanidine 4 mg Tablet 8 mg PO Q8H RF: 0 ondansetron HCl 8 mg Tablet 8 mg PO Q8H RF: 0 hydromorphone [Dilaudid] 8 mg Tablet 8 mg PO Q4H PRN (Reason: Pain) RF: 0 isosorbide mononitrate 30 mg Tablet Extended Release 24 Hr 30 mg PO QDAY RF: 0 cyproheptadine 4 mg Tablet 4 mg PO Q8H RF: 0 potassium chloride 20 mEq Packet 20 meq PO BID RF: 0 cyanocobalamin (vitamin B-12) 500 mcg Tablet 500 mcg PO QDAY RF: 0 zolpidem [Ambien] 5 mg Tablet 5 mg PO QHS PRN (Reason: Insomnia) RF: 0 verapamil 80 mg Tablet 80 mg PO TID RF: 0 ranolazine 500 mg Tablet Extended Release 12 Hr 500 mg PO BID RF: 0 cholecalciferol (vitamin D3) 25 mcg (1,000 unit) Tablet 25 mcg PO QDAY RF: 0 ivabradine 7.5 mg Tablet 7.5 mg PO BID RF: 0 Xanax tablet 0.5 mg PO TID RF: 0 gabapentin 50 mg PO TID RF: 0 fentanyl 50 mcg/hr Patch 72 Hour 50 mcg transdermal Q3D RF: 0 Follow Up Plan Follow up with: Mary Owusu MD [Primary Care Provider] - Chet Alves MD [Physician] - 04/07/21 2:45 pm (Left ureteral stent removal. ) Patient Disposition: Home, Self-Care Prognosis: Fair Rehab Potential: Fair Overall status at discharge: patient is progressing back to baseline Discharge Orders: Discharge Order (Routine); Ordered 03/24/21 Ordered By: Zuhair BANUELOS VTE Deep Vein Thrombosis/Pulmonary Embolism Present on Admission: No
== END 2021-03-24 16:10 | disposition home or self-care (01) ==
LOC: ED 08:43 → MEDSUR 08:43
PROVIDERS: ADMIT Internal Medicine; ATTEND Internal Medicine